=== PATIENT | female | born 1970 | race Caucasian/White ===

== ENCOUNTER → 2018-09-08 | Outpatient (REF) | payer BC ==
[2018-09-08 12:27] LABS: HEMATOCRIT 46.7 % (36.0-47.0); HEMOGLOBIN 14.8 g/dl (12.0-15.5); MEAN CORPUSCULAR HEMOGLOBIN 27.7 pg (27.0-33.0); MEAN CORPUSCULAR HGB CONC 31.7 g/dl (32.0-36.5); MEAN CORPUSCULAR VOLUME 87.5 fl (80.0-96.0); PLATELET COUNT, AUTOMATED 234 10^3/uL (150-450); RED BLOOD COUNT 5.34 10^6/uL (4.00-5.40); RED CELL DISTRIBUTION WIDTH 13.6 % (11.5-14.5); WHITE BLOOD COUNT 9.4 10^3/uL (4.0-10.0)
[2018-09-08 13:01] LABS: ALBUMIN 4.2 GM/DL (3.2-5.2); ALBUMIN/GLOBULIN RATIO 1.17 (1.00-1.93); ALKALINE PHOSPHATASE 135 U/L (45-117); ALT/SGPT 23 U/L (12-78); ANION GAP 6 MEQ/L (8-16); AST/SGOT 18 U/L (7-37); BILIRUBIN,TOTAL 0.4 MG/DL (0.2-1.0); BLOOD UREA NITROGEN 14 MG/DL (7-18); CARBON DIOXIDE LEVEL 29 MEQ/L (21-32); CHLORIDE LEVEL 106 MEQ/L (98-107); CHOLESTEROL LEVEL 294 MG/DL (<200); GLOMERULAR FILTRATION RATE > 60.0 (>58); GLUCOSE, FASTING 87 MG/DL (70-100); HDL CHOLESTEROL 28 MG/DL (>40); NON-HDL-C 266 MG/DL; POTASSIUM SERUM 5.6 MEQ/L (3.5-5.1); SODIUM LEVEL 141 MEQ/L (136-145); TOTAL PROTEIN 7.8 GM/DL (6.4-8.2); TRIGLYCERIDES LEVEL 422 MG/DL (<150)
[2018-09-08 13:10] LABS: TOTAL 25(OH) VITAMIN D 27.4 NG/ML (30.0-100.0)
[2018-09-08 13:33] LABS: ESTIMATED AVERAGE GLUCOSE 103 MG/DL (60-110); HEMOGLOBIN A1c 5.2 %
== END ==
LOC: M SFHCADAM 08:52
DX: E78.1 Pure hyperglyceridemia (principal); F17.200 Nicotine dependence, unspecified, uncomplicated; Z13.1 Encounter for screening for diabetes mellitus; E55.9 Vitamin D deficiency, unspecified

== ENCOUNTER → 2019-09-13 | Outpatient (REF) | payer BC ==
[2019-09-13 13:42] LABS: HEMATOCRIT 45.7 % (36.0-47.0); HEMOGLOBIN 14.6 g/dl (12.0-15.5); MEAN CORPUSCULAR HEMOGLOBIN 28.2 pg (27.0-33.0); MEAN CORPUSCULAR HGB CONC 31.9 g/dl (32.0-36.5); MEAN CORPUSCULAR VOLUME 88.2 fl (80.0-96.0); PLATELET COUNT, AUTOMATED 205 10^3/uL (150-450); RED BLOOD COUNT 5.18 10^6/uL (4.00-5.40)
[2019-09-13 13:44] LABS: ALT/SGPT 26 U/L (12-78); BILIRUBIN,TOTAL 0.5 MG/DL (0.2-1.0); BLOOD UREA NITROGEN 12 MG/DL (7-18); CALCIUM LEVEL 9.4 MG/DL (8.5-10.1); CARBON DIOXIDE LEVEL 28 MEQ/L (21-32); CHLORIDE LEVEL 105 MEQ/L (98-107); CHOLESTEROL LEVEL 258 MG/DL (<200); CHOLESTEROL RISK RATIO 8.062 (<5); CREATININE FOR GFR 0.76 MG/DL (0.55-1.30); FREE T4 1.06 NG/DL (0.76-1.46); GLOMERULAR FILTRATION RATE > 60.0 (>58); GLUCOSE, FASTING 74 MG/DL (70-100); HDL CHOLESTEROL 32 MG/DL (>40); LDL CHOLESTEROL 153 MG/DL (<100); NON-HDL-C 226 MG/DL; POTASSIUM SERUM 4.3 MEQ/L (3.5-5.1); SODIUM LEVEL 138 MEQ/L (136-145); TOTAL PROTEIN 7.9 GM/DL (6.4-8.2); TRIGLYCERIDES LEVEL 367 MG/DL (<150)
== END ==
LOC: M SFHCADAM 09:41
PROVIDERS: ATTEND Physician Assistant
DX: R06.09 Other forms of dyspnea (principal); E78.1 Pure hyperglyceridemia; E78.5 Hyperlipidemia, unspecified; F17.200 Nicotine dependence, unspecified, uncomplicated

== ENCOUNTER → 2021-08-09 | Outpatient (REF) | payer BC ==
[2021-08-09 18:16] LABS: HEMATOCRIT 45.7 % (36.0-47.0); HEMOGLOBIN 14.4 g/dl (12.0-15.5); MEAN CORPUSCULAR HEMOGLOBIN 27.6 pg (27.0-33.0); MEAN CORPUSCULAR HGB CONC 31.5 g/dl (32.0-36.5); MEAN CORPUSCULAR VOLUME 87.5 fl (80.0-96.0); PLATELET COUNT, AUTOMATED 234 10^3/uL (150-450); RED BLOOD COUNT 5.22 10^6/uL (4.00-5.40); WHITE BLOOD COUNT 9.6 10^3/uL (4.0-10.0)
[2021-08-09 18:47] LABS: ALBUMIN 4.1 GM/DL (3.2-5.2); ALT/SGPT 31 U/L (12-78); BILIRUBIN,TOTAL 0.3 MG/DL (0.2-1.0); BLOOD UREA NITROGEN 14 MG/DL (7-18); CALCIUM LEVEL 9.6 MG/DL (8.5-10.1); CARBON DIOXIDE LEVEL 30 MEQ/L (21-32); CHLORIDE LEVEL 104 MEQ/L (98-107); CHOLESTEROL LEVEL 226 MG/DL (<200); CHOLESTEROL RISK RATIO 7.062 (<5); CREATININE FOR GFR 0.77 MG/DL (0.55-1.30); FREE T4 1.02 NG/DL (0.76-1.46); GLOMERULAR FILTRATION RATE > 60.0 (>51); GLUCOSE, FASTING 85 MG/DL (70-100); HDL CHOLESTEROL 32 MG/DL (>40); LDL CHOLESTEROL 125 MG/DL (<100); NON-HDL-C 194 MG/DL; SODIUM LEVEL 138 MEQ/L (136-145); TRIGLYCERIDES LEVEL 347 MG/DL (<150)
[2021-08-09 21:22] LABS: HEMOGLOBIN A1c 5.1 %
== END ==
LOC: M SFHCADAM 12:12
PROVIDERS: ATTEND Physician Assistant
DX: E78.2 Mixed hyperlipidemia (principal); F17.210 Nicotine dependence, cigarettes, uncomplicated; E78.1 Pure hyperglyceridemia; Z13.1 Encounter for screening for diabetes mellitus; E55.9 Vitamin D deficiency, unspecified

== ENCOUNTER 2021-10-07 12:41 | Emergency (ER) | payer BC ==
[~2021-10-07] VITALS: Ht 160 cm; Wt 91.8 kg
--- OUTSIDE RECORDS SUMMARY | 2021-10-07 12:47 | CCD ---
Author Author [facility] Organization [facility] Address Unknown Phone Unavailable Care Team Providers Care Information Services Consultant Name Role Phone Raven Sinclair Unavailable PROBLEMS Type Condition ICD9-CM Code FLH06-DH Code Onset Dates Condition S tatus W/U Status Risk SNOMED Code Notes Problem Gastro-esophageal reflux disease without esophagitis K21.9 Active confirmed 270711079 Problem Hypertriglyceridemia E78.1 Active confirmed 034274648 Problem Hordeolum externum right lower eyelid H00.012 Ac tive confirmed 3274027 Problem Allergic rhinitis, unspecified J30.9 Active confir med 00604904 Problem Nicotine dependence, unspecified, uncomplicated F1 7.200 Active confirmed 227606935 Problem Hyperlipidemia, unspecified E78.5 Active confirmed 09212394 Problem Vitamin D deficiency, unspecified E55.9 Active con firmed 39282882 Problem Mixed hyperlipidemia E78.2 Active confirmed 372463739 Problem Major depressive disorder, single episode, unspecified F32.9 Active confirmed 50196333 Problem Cigarette nicotine dependence without complication F17.210 Active confirmed 62137460 Problem Anxiety disorder, unspecified F41.9 Active confirm ed 117801568 Problem TAWNYA (obstructive sleep apnea) G47.33 Active confirm ed 20584338 Problem Other fatigue R53.83 Active confirmed 812732 01 Problem Low back pain M54.5 Active confirmed 698235 007 Problem Calculus of gallbladder without cholecystitis wi thout obstruction K80.20 Active confirmed 85127286 ALLERGIES No Known Allergies ENCOUNTERS from 1971 to 2021-08-22 Encounter Location Date Provider Diagnosis [facility] [address] [place] [address] 27 Jul, 2021 Raven Sinclair Hypertriglyceridemia E78.1 IMMUNIZATIONS Vaccine Route Administration Date Status COVID-19 dose #1 given elsewhere Unspecified Unknown Sep t 2020 Administered SOCIAL HISTORY Tobacco Use: Social History Observation Description Date Details (start date - stop date) Current Smoker Sex Assigned At : Social History Observation Description Sex Assigned At Unknown Audit Question Answer Notes Total Score: 5 Interpretation: Alcohol Education Sexual Hx: Question Answer Notes Had sex in the last 12 months (vaginal, oral, or anal)? No LMP: age 33 Have you ever had an STD? No Drug and Alcohol Question Answer Notes Total Score: 0 Interpretation: No problems reported Alcohol Screening: Question Answer Notes Did you have a drink containing alcohol in the past year? Ye s Points 2 Interpretation Negative How often did you have six or more drinks on one occas ion in the past year? Never (0 points) How many drinks did you have on a typica l day when you were drinking in the past year? 3 or 4 (1 point) How often did you have a drink containing alcohol in t he past year? Monthly or less (1 point) BMI Care Goal Follow-Up Question Answer Notes Above Normal BMI Follow-Up Lifestyle education regarding t Tobacco Use: Question Answer Notes Are you a: current smoker Patient counseled on the dangers of tobacco use and urged to quit: 08/09/2021 How many cigarettes a day do you smoke? 11-20 Are you interested in quitting? Not ready to quit Counseled the patient on smoking effects, education provided 08/09/2021 REASON FOR REFERRAL No Information VITAL SIGNS No information MEDICATIONS Medication SIG (Take, Route, Frequency, Duration) Notes Start Da te End Date Status Loratadine 10 MG 1 tablet Orally Once a day Active Tylenol 500 MG 1 tablet as needed Orally every 6-8 hrs Active Prilosec 20mg 20mg 1 tab(s) orally daily for 30 Days Active Vitamin D3 5000 UNIT take one tablet by mouth andrew ry day Orally Once a day for 30 day(s) Active Tobrex 0.3 % 1 application Ophthalmic four times daily for 10 day(s) Aug, Not-Taking Ventolin HFA 108 (90 Base) MCG/ACT 2 puffs as needed I nhalation every 6 hrs as neededf ro shortnessof breath for 30 days Aug, Not-Taking Lipitor 80 MG 1 tablet Orally Once a day for 90 days 2019 Active Albuterol Sulfate HFA 108 (90 Base) MCG/ACT 1 puff as needed Inhalation every 4 hrs as needed for 30 days Jul, Active Omeprazole 20 MG 1 capsule 30 minutes before morning meal Orally Once a day for 90 days Jul, Active Pepcid 40 MG 1 tablet at bedtime Orally Once a day Active Fluoxetine HCl 20 MG 1 capsule Orally Once a day for 90 days Aug, Active PROCEDURES No Information RESULTS No Results REASON FOR VISIT lipids MEDICAL (GENERAL) HISTORY Type Description Date Medical History Migraine- Dr Brady - 2007/de pakote- gain wt, topamax-self stopped d/t lead taste Medical History Left lung nodule- CT chest 2 008 (Stable x 2 years - no further imaging required) Medical History Depression /anxiety- prozac/xanax Medical History Back pain- 2005 Medical History Left hip- osteoporosis Medical History Neck LN- left- ENT - Medical History Tobacco abuse- 1 PPD Medical History Vitamin D deficiency Medical History Mild lumbar DJD per x-ray 2012 Medical History TAWNYA - Did not tolerate CPAP mask Medical History Gall Stones - REferred to Surgery 04/2019 Medical History Hyperlipidemia/Hypertriglyceridemia Surgical History EGD - esophageal inflammation/colonoscop y normal - Dr. Gilbert 01/2015 Goals Section No Information Health Concerns No Information MEDICAL EQUIPMENT No Information MENTAL STATUS No Information FUNCTIONAL STATUS No Information ASSESSMENTS Encounter Date Diagnosis Assessment Notes Treatment Notes Treatm ent Clinical Notes Jul, Hypertriglyceridemia (ICD-10 - E78.1) PLAN OF TREATMENT Medication Medication Name Sig Start Date Stop Date Albuterol Sulfate HFA 108 (90 Base) MCG/ACT 1 puff as needed Inhalation every 4 hrs as needed for 30 days Jul, Omeprazole 20 MG 1 capsule 30 minutes before morning meal Orally Once a day for 90 days Jul, Lipitor 80 MG 1 tablet Orally Once a day for 90 days 30 Jan, 2 020 Fluoxetine HCl 20 MG 1 capsule Orally Once a day for 90 days Aug, Future Test Test Name Order Date Comprehensive Metabolic Profile (CMP) [id number] LIPID PANEL (CARDIAC RISK) [id number] Next Appt Details Provider Name:Raven Sinclair, 2020-10 -27 09:00:00 AM, [address], , [place], [address], Insurance Providers Payer Name Payer Address Payer Phone Insured Name Patient Relati onship to Insured Coverage Start Date Coverage End Date BCBS KIMBERLY RETANA [phone] [facility] [place] [address] JAIR STEWART [id number]
--- OUTSIDE RECORDS SUMMARY | 2021-10-07 12:47 | CCD ---
Author Author [facility] Organization [facility] Address Unknown Phone Unavailable Support Name Relationship Address Phone UN Next Of Kin Unknown Unavailable CONTACT, OTHER NO Next Of Kin - - -, - - - [place] [address] CHRISTOPHER FARAH Next Of Kin [address] [place] [address] PatChristopher bradley E[address] [place] [address] Unavailable Re-disclosure Warning The records that you are about to access may contain information from federally-assisted alcohol or drug abuse programs. If such information is present, then the following federally mandated warning applies: This information has been disclosed to you from records protected by federal confidentiality rules (42 CFR part 2). The federal rules prohibit you from making any further disclosure of this information unless further disclosure is expressly permitted by the written consent of the person to whom it pertains or as otherwise permitted by 42 CFR part 2. A general authorization for the release of medical or other information is NOT sufficient for this purpose. The Federal rules restrict any use of the information to criminally investigate or prosecute any alcohol or drug abuse patient.The records that you are about to access may contain highly sensitive health information, the redisclosure of which is protected by Article 27-F of the [facility] Public Health law. If you continue you may have access to information: Regarding HIV / AIDS; Provided by facilities licensed or operated by the [facility] Office of Mental Health; or Provided by the [facility] Office for People With Developmental Disabilities. If such information is present, then the following [facility] mandated warning applies: This information has been disclosed to you from confidential records which are protected by state law. State law prohibits you from making any further disclosure of this information without the specific written consent of the person to whom it pertains, or as otherwise permitted by law. Any unauthorized further disclosure in violation of state law may result in a fine or mcc sentence or both. A general authorization for the release of medical or other information is NOT sufficient authorization for further disc losure. Family History Family Member Name Family Member Gender Family Member Status Date o f Status Description Data Source(s) Unknown Female Problem MEDENT ([facility]) Unknown Female Problem MEDENT ([facility]) Encounters Encounter Providers Location Date Indications Data Source(s ) [place] [address] [address] 08/12/2021 12:00:00 AM EDT [facility]CW1 [facility] [place] [address] [facility] [place] [address] 08/09/2021 12:00:00 AM EDT eCW1 ([facility]) Unknown [address] [facility] [place] [address] 07/03/2021 12:00:00 AM EDT eCW1 ([facility]) [place] [address] [address] 05/31/2021 12:00:00 AM EDT eCW1 ([facility]) [place] [address] [facility] [facility] [place] [address] 05/31/2021 12:00:00 AM EDT eCW1 ([facility]) [place] [address] [facility] [place] [address] 05/31/2021 12:00:00 AM EDT eCW1 ([facility]) [place] [address] [address] 11/15/2020 12:00:00 AM EST eCW1 ([facility]) [place] [address] [facility] [place] [address] 10/03/2020 12:00:00 AM EST eCW1 ([facility]) Immunizations Vaccine Date Status Description Data Source(s) COVID-19 dose #1 given elsewhere Unspecified 08/05/2021 11:3 4:00 AM EDT [facility] COVID-19 dose #1 given elsewhere Unspecified 08/05/2021 11:3 4:00 AM EDT completed eCW1 ([facility]) COVID-19 VACCINE Mayda 08/05/2021 12:00:00 AM EDT completed [facility] Vaccine Series Complete: YESThis Data wa s Submitted to [facility] Via [employer]. Medications Medication Brand Name Start Date Product Form Dose Route Admi nistrative Instructions Pharmacy Instructions Status Indications Reaction Description Data Source(s) 80 mg 08/19/2021 12:00:00 AM EDT tablet 90 TAKE ONE TABLET BY MOUTH EVERY DAY TAKE ONE TABLET BY MOUTH EVERY DAY SOLD: 09/06/2021 [facility] 20 mg 08/09/2021 12:00:00 AM EDT capsule,delayed release (DR/EC) 90 TAKE ONE CAPSULE BY MOUTH 30 MINUTES PRIOR TO MORNING MEAL ONCE DAILY TAKE ONE CAPSULE BY MOUTH 30 MINUTES PRIOR TO MORNING MEAL ONCE DAILY SOLD: 08/09/2021 [facility] Omeprazole 20 MG Delayed Release Oral Capsule Omeprazole 20 MG 08/09/2021 12:00:00 AM EDT active Omeprazo le 20 MG eCW1 ([facility]) 20 mg 08/09/2021 12:00:00 AM EDT capsule 90 TAKE ONE CAPSULE BY MOUTH ONCE DAILY TAKE ONE CAPSULE BY MOUTH ONCE DAILY SOLD: 08/09/2021 [facility] 90 mcg/actuation 08/09/2021 12:00:00 AM EDT HFA aerosol inha ler 8 INHALE 1 PUFF BY MOUTH EVERY 4 HOURS NEEDED INHALE 1 PUFF BY MOUTH EVERY 4 HOURS NEEDED SOLD: 08/09/2021 [facility] Albuterol Sulfate HFA 108 (90 Base) MCG/ACT Albuterol Sulfate HFA 108 (90 Base) MCG/ACT 08/09/2021 12:00:00 AM EDT 1.0 {puff_as_needed} active Albuterol Sulfate HFA 108 (90 Base) MCG/ACT eCW1 ([facility]) Albuterol Sulfate HFA 108 (90 Base) MCG/ACT Albuterol Sulfate HFA 108 (90 Base) MCG/ACT 08/09/2021 12:00:00 AM EDT 1.0 {puff_as_needed} active Albuterol Sulfate HFA 108 (90 Base) MCG/ACT eCW1 ([facility]) atorvastatin 40 MG Oral Tablet ATORVASTATIN CALCIUM 08/09/2021 1 2:00:00 AM EDT tablet 90 TAKE ONE TABLET BY MOUTH ONCE DA PACO TAKE ONE TABLET BY MOUTH ONCE DAILY SOLD: 08/09/2021 [facility] Omeprazole 20 MG Delayed Release Oral Capsule Omeprazole 20 MG 08/09/2021 12:00:00 AM EDT active Omeprazo le 20 MG eCW1 ([facility]) 20 mg 07/04/2021 12:00:00 AM EDT capsule 30 TAKE ONE CAPSULE BY MOUTH EVERY DAY TAKE ONE CAPSULE BY MOUTH EVERY DAY SOLD: 07/15/2021 [facility] atorvastatin 40 MG Oral Tablet ATORVASTATIN CALCIUM 06/01/2021 1 2:00:00 AM EDT tablet 30 TAKE ONE TABLET BY MOUTH EVERY D AY TAKE ONE TABLET BY MOUTH EVERY DAY SOLD: 07/15/2021 [facility] 20 mg 06/01/2021 12:00:00 AM EDT capsule 30 TAKE ONE CAPSULE BY MOUTH ONCE DAILY TAKE ONE CAPSULE BY MOUTH ONCE DAILY SOLD: 06/02/2021 [facility] atorvastatin 40 MG Oral Tablet ATORVASTATIN CALCIUM 06/01/2021 1 2:00:00 AM EDT tablet 30 TAKE ONE TABLET BY MOUTH EVERY D AY TAKE ONE TABLET BY MOUTH EVERY DAY SOLD: 06/02/2021 [facility] 20 mg 05/31/2021 12:00:00 AM EDT capsule,delayed release (DR/EC) 30 TAKE ONE CAPSULE BY MOUTH EVERY DAY TAKE ONE CAPSULE BY MOUTH EVERY DAY SOLD: 07/15/2021 [facility] 20 mg 05/31/2021 12:00:00 AM EDT capsule,delayed release (DR/EC) 30 TAKE ONE CAPSULE BY MOUTH EVERY DAY TAKE ONE CAPSULE BY MOUTH EVERY DAY SOLD: 06/02/2021 [facility] 20 mg 11/16/2020 12:00:00 AM EST capsule 30 TAKE ONE CAPSULE BY MOUTH EVERY DAY TAKE ONE CAPSULE BY MOUTH EVERY DAY SOLD: 02/27/2021 [facility] atorvastatin 40 MG Oral Tablet ATORVASTATIN CALCIUM 11/16/2020 1 2:00:00 AM EST tablet 30 TAKE ONE TABLET BY MOUTH EVERY D AY TAKE ONE TABLET BY MOUTH EVERY DAY SOLD: 03/27/2021 [facility] atorvastatin 40 MG Oral Tablet ATORVASTATIN CALCIUM 11/16/2020 1 2:00:00 AM EST tablet 30 TAKE ONE TABLET BY MOUTH EVERY D AY TAKE ONE TABLET BY MOUTH EVERY DAY SOLD: 02/27/2021 [facility] 20 mg 11/16/2020 12:00:00 AM EST capsule 30 TAKE ONE CAPSULE BY MOUTH EVERY DAY TAKE ONE CAPSULE BY MOUTH EVERY DAY SOLD: 11/18/2020 [facility] 20 mg 11/16/2020 12:00:00 AM EST capsule 30 TAKE ONE CAPSULE BY MOUTH EVERY DAY TAKE ONE CAPSULE BY MOUTH EVERY DAY SOLD: 03/27/2021 [facility] 20 mg 11/16/2020 12:00:00 AM EST capsule 30 TAKE ONE CAPSULE BY MOUTH EVERY DAY TAKE ONE CAPSULE BY MOUTH EVERY DAY SOLD: 12/24/2020 [facility] 20 mg 11/16/2020 12:00:00 AM EST capsule 30 TAKE ONE CAPSULE BY MOUTH EVERY DAY TAKE ONE CAPSULE BY MOUTH EVERY DAY SOLD: 05/07/2021 [facility] atorvastatin 40 MG Oral Tablet ATORVASTATIN CALCIUM 11/16/2020 1 2:00:00 AM EST tablet 30 TAKE ONE TABLET BY MOUTH EVERY D AY TAKE ONE TABLET BY MOUTH EVERY DAY SOLD: 12/24/2020 [facility] 20 mg 11/16/2020 12:00:00 AM EST capsule 30 TAKE ONE CAPSULE BY MOUTH EVERY DAY TAKE ONE CAPSULE BY MOUTH EVERY DAY SOLD: 01/21/2021 [facility] atorvastatin 40 MG Oral Tablet ATORVASTATIN CALCIUM 11/16/2020 1 2:00:00 AM EST tablet 30 TAKE ONE TABLET BY MOUTH EVERY D AY TAKE ONE TABLET BY MOUTH EVERY DAY SOLD: 01/21/2021 [facility] atorvastatin 40 MG Oral Tablet ATORVASTATIN CALCIUM 11/16/2020 1 2:00:00 AM EST tablet 30 TAKE ONE TABLET BY MOUTH EVERY D AY TAKE ONE TABLET BY MOUTH EVERY DAY SOLD: 05/07/2021 [facility] atorvastatin 40 MG Oral Tablet ATORVASTATIN CALCIUM 11/16/2020 1 2:00:00 AM EST tablet 30 TAKE ONE TABLET BY MOUTH EVERY D AY TAKE ONE TABLET BY MOUTH EVERY DAY SOLD: 11/18/2020 [facility] 20 mg 11/15/2020 12:00:00 AM EST capsule,delayed release (DR/EC) 30 TAKE ONE CAPSULE BY MOUTH EVERY DAY TAKE ONE CAPSULE BY MOUTH EVERY DAY SOLD: 03/27/2021 [facility] 20 mg 11/15/2020 12:00:00 AM EST capsule,delayed release (DR/EC) 30 TAKE ONE CAPSULE BY MOUTH EVERY DAY TAKE ONE CAPSULE BY MOUTH EVERY DAY SOLD: 02/27/2021 [facility] 20 mg 11/15/2020 12:00:00 AM EST capsule,delayed release (DR/EC) 30 TAKE ONE CAPSULE BY MOUTH EVERY DAY TAKE ONE CAPSULE BY MOUTH EVERY DAY SOLD: 12/24/2020 [facility] 20 mg 11/15/2020 12:00:00 AM EST capsule,delayed release (DR/EC) 30 TAKE ONE CAPSULE BY MOUTH EVERY DAY TAKE ONE CAPSULE BY MOUTH EVERY DAY SOLD: 01/21/2021 [facility] 20 mg 11/15/2020 12:00:00 AM EST capsule,delayed release (DR/EC) 30 TAKE ONE CAPSULE BY MOUTH EVERY DAY TAKE ONE CAPSULE BY MOUTH EVERY DAY SOLD: 05/07/2021 [facility] 20 mg 11/15/2020 12:00:00 AM EST capsule,delayed release (DR/EC) 30 TAKE ONE CAPSULE BY MOUTH EVERY DAY TAKE ONE CAPSULE BY MOUTH EVERY DAY SOLD: 11/18/2020 [facility] 20 mg 10/04/2020 12:00:00 AM EST capsule 30 TAKE ONE CAPSULE BY MOUTH EVERY DAY TAKE ONE CAPSULE BY MOUTH EVERY DAY SOLD: 10/15/2020 [facility] atorvastatin 40 MG Oral Tablet ATORVASTATIN CALCIUM 10/04/2020 1 2:00:00 AM EST tablet 30 TAKE ONE TABLET BY MOUTH EVERY D AY TAKE ONE TABLET BY MOUTH EVERY DAY SOLD: 10/15/2020 [facility] 20 mg 10/03/2020 12:00:00 AM EST capsule,delayed release (DR/EC) 30 TAKE ONE CAPSULE BY MOUTH EVERY DAY TAKE ONE CAPSULE BY MOUTH EVERY DAY SOLD: 10/15/2020 [facility] 20 mg 03/02/2020 12:00:00 AM EDT capsule 30 TAKE ONE CAPSULE BY MOUTH EVERY DAY TAKE ONE CAPSULE BY MOUTH EVERY DAY SOLD: 08/08/2020 [facility] 20 mg 03/02/2020 12:00:00 AM EDT capsule 30 TAKE ONE CAPSULE BY MOUTH EVERY DAY TAKE ONE CAPSULE BY MOUTH EVERY DAY SOLD: 09/17/2020 [facility] 20 mg 03/01/2020 12:00:00 AM EDT capsule,delayed release (DR/EC) 30 TAKE ONE CAPSULE BY MOUTH EVERY DAY TAKE ONE CAPSULE BY MOUTH EVERY DAY SOLD: 08/08/2020 [facility] 125 mcg (5,000 unit) 03/01/2020 12:00:00 AM EDT tablet 30 TAKE ONE TABLET BY MOUTH EVERY DAY TAKE ONE TABLET BY MOUTH EVERY DAY SOLD: 08/08/2020 [facility] 20 mg 03/01/2020 12:00:00 AM EDT capsule,delayed release (DR/EC) 30 TAKE ONE CAPSULE BY MOUTH EVERY DAY TAKE ONE CAPSULE BY MOUTH EVERY DAY SOLD: 09/17/2020 [facility] atorvastatin 40 MG Oral Tablet ATORVASTATIN CALCIUM 02/13/2020 1 2:00:00 AM EDT tablet 30 TAKE ONE TABLET BY MOUTH EVERY D AY TAKE ONE TABLET BY MOUTH EVERY DAY SOLD: 09/17/2020 [facility] atorvastatin 40 MG Oral Tablet ATORVASTATIN CALCIUM 02/13/2020 1 2:00:00 AM EDT tablet 30 TAKE ONE TABLET BY MOUTH EVERY D AY TAKE ONE TABLET BY MOUTH EVERY DAY SOLD: 08/08/2020 [facility] Insurance Providers Payer name Policy type / Coverage type Policy ID Covered libertarian ID Covered libertarian's relationship to garner Policy Garner Plan Information BCBS/[employer] Commercial [id number] Family Dependent ANSI-Commercial [id number] BLUE CROSS BLUE SHIELD-O/P [id number] ANSI-Commercial [id number] ANSI-Commercial [id number] [place] PPO 302/307 [id number] [place]CELL[place] BCBS P [id number] BPM [id number] BLUE CROSS BLUE SHIELD-O/P [id number] BCBS [place] PPO 302/307 [id number] Problems, Conditions, and Diagnoses Code Display Name Description Problem Type Effective Dates Data Source(s) F17.210 [id number] Cigarette nicotine dependence without com plication Problem 08/09/2021 12:00:00 AM EDT eCW1 ([facility]) Surgeries/Procedures No Information Results ID Date Data Source VITAMIN D [id number] 08/09/2021 12:00:00 AM EDT eCW1 ([facility]) Name Value Range Interpretation Code Description Data Josephine rce(s) Supporting Document(s) 40.0 30.0-100.0 TOTAL 25(OH) VITAMIN D eC W1 ([facility]) ID Date Data Source LIPID PANEL (CARDIAC RISK) 08/09/2021 12:00:00 AM EDT eCW1 ( [facility]) Name Value Range Interpretation Code Description Data Josephine rce(s) Supporting Document(s) Triglyceride [Mass/volume] in Serum or Plasma by calculation 347 <150 TRIGLYCERIDES LEVEL eCW1 ([facility]) Cholesterol in LDL [Mass/volume] in Serum or Plasma by calculation 125 <100 LDL CHOLESTEROL eCW1 ([facility]) Cholesterol in HDL [Moles/volume] in Serum or Plasma 32 >40 HDL CHOLESTEROL eCW1 ([facility]) Cholesterol [Moles/volume] in Serum or Plasma 226 <200 CHOLESTEROL LEVEL eCW1 ([facility]) 7.062 <5 CHOLESTEROL RISK RATIO eCW1 ([facility]) 194 NON-HDL-C eCW1 ([facility]) ID Date Data Source [id number] 08/09/2021 12:00:00 AM EDT eCW1 ([facility]) Name Value Range Interpretation Code Description Data Josephine rce(s) Supporting Document(s) Hemoglobin A1c/Hemoglobin.total in Blood 5.1 HEMOGLOBIN A1c eCW1 ([facility]) ID Date Data Source FREE T4 & TSH PANEL 08/09/2021 12:00:00 AM EDT eCW1 ([facility]) Name Value Range Interpretation Code Description Data Josephine rce(s) Supporting Document(s) 2.170 0.358-3.740 THYROID STIMULATING HORM ONE eCW1 ([facility]) 1.02 0.76-1.46 FREE T4 eCW1 ([facility]) ID Date Data Source Comprehensive Metabolic Profile (CMP) 08/09/2021 12:00:00 AM EDT eCW1 ([facility]) Name Value Range Interpretation Code Description Data Josephine rce(s) Supporting Document(s) 85 70-100 GLUCOSE, FASTING eCW1 ([facility]) 14 7-18 BLOOD UREA NITROGEN eCW1 ([facility]) 5.0 3.5-5.1 POTASSIUM SERUM eCW1 ([facility]) 0.77 0.55-1.30 CREATININE FOR GFR eCW1 ([facility]) > 60.0 >51 GLOMERULAR FILTRATION RATE eCW 1 ([facility]) 138 136-145 SODIUM LEVEL eCW1 ([facility]) 30 21-32 CARBON DIOXIDE LEVEL eCW1 ([facility]) 9.6 8.5-10.1 CALCIUM LEVEL eCW1 ([facility]) 104 98-107 CHLORIDE LEVEL eCW1 ([facility]) 19 7-37 AST/SGOT eCW1 ([facility]) 31 12-78 ALT/SGPT eCW1 ([facility]) 129 45-117 ALKALINE PHOSPHATASE eCW1 ([facility]) 0.3 0.2-1.0 BILIRUBIN,TOTAL eCW1 ([facility]) 8.0 6.4-8.2 TOTAL PROTEIN eCW1 ([facility]) 4.1 3.2-5.2 ALBUMIN eCW1 ([facility]) 1.1 1.2-2.2 ALBUMIN/GLOBULIN RATIO eCW1 ([facility]) ID Date Data Source CBC - Complete Blood Count 08/09/2021 12:00:00 AM EDT eCW1 ( [facility]) Name Value Range Interpretation Code Description Data Josephine rce(s) Supporting Document(s) 9.6 4.0-10.0 WHITE BLOOD COUNT eCW1 ([facility]) 5.22 4.00-5.40 RED BLOOD COUNT eCW1 ([facility]) 14.4 12.0-15.5 HEMOGLOBIN eCW1 ([facility]) 45.7 36.0-47.0 HEMATOCRIT eCW1 ([facility]) 87.5 80.0-96.0 MEAN CORPUSCULAR VOLUME e CW1 ([facility]) 31.5 32.0-36.5 MEAN CORPUSCULAR HGB CONC eCW1 ([facility]) 234 150-450 PLATELET COUNT, AUTOMATED eCW1 ([facility]) 13.7 11.5-14.5 RED CELL DISTRIBUTION WID TH eCW1 ([facility]) 27.6 27.0-33.0 MEAN CORPUSCULAR HEMOGLOB IN eCW1 ([facility]) Procedure Social History Code Duration Value Status Description Data Source(s ) Smoking 08/09/2021 12:00:00 AM EDT Current Smoker completed Curre nt Smoker eCW1 ([facility]) Smoking 08/09/2021 12:00:00 AM EDT Current Smoker completed Curre nt Smoker eCW1 ([facility]) Vital Signs ID Date Data Source UNK Name Value Range Interpretation Code Description Data Source(s) Body weight 196.8 [lb_av] 196.8 [lb_av] eCW1 ([facility]) Body weight 89.27 kg 89.27 kg W1 ([facility]) Body height 63 [in_i] 63 [in_i] W1 ([facility]) Systolic blood pressure 118 mm[Hg] 118 mm[Hg] e CW1 ([facility]) Respiratory rate 18 /min 18 /min W1 ([facility]) Body temperature 94.9 [degF] 94.9 [degF] eCW1 ( [facility]) Diastolic blood pressure 60 mm[Hg] 60 mm[Hg] eCW1 ([facility]) Body mass index (BMI) [Ratio] 34.86 kg/m2 34.86 kg/m2 eCW1 ([facility]) Heart rate 114 /min 114 /min eCW1 ([facility]) Patient Treatment Plan of Care Planned Activity Planned Date Details Description Data Source (s) Omeprazole 20 MG Delayed Release Oral Capsule 08/09/2021 12:00:00 A M EDT eCW1 ([facility]) Albuterol Sulfate HFA 108 (90 Base) MCG/ACT 08/09/2021 12:00:00 AM EDT eCW1 ([facility]) Omeprazole 20 MG Delayed Release Oral Capsule 08/09/2021 12:00:00 A M EDT eCW1 ([facility]) Albuterol Sulfate HFA 108 (90 Base) MCG/ACT 08/09/2021 12:00:00 AM EDT eCW1 ([facility])
--- OUTSIDE RECORDS SUMMARY | 2021-10-07 12:47 | CCD ---
Author Author [facility] Organization [facility] Address Unknown Phone Unavailable Care Team Providers Care Quality Assurance Supervisor Body Name Role Phone Raven Sinclair Unavailable PROBLEMS Type Condition ICD9-CM Code [id number] Code Onset Dates Condition S tatus W/U Status Risk SNOMED Code Notes Problem Gastro-esophageal reflux disease without esophagitis K21.9 Active confirmed 274177054 Problem Hypertriglyceridemia E78.1 Active confirmed 796328615 Problem Hordeolum externum right lower eyelid H00.012 Ac tive confirmed 5416904 Problem Allergic rhinitis, unspecified J30.9 Active confir med 68769263 Problem Nicotine dependence, unspecified, uncomplicated F1 7.200 Active confirmed 304047560 Problem Hyperlipidemia, unspecified E78.5 Active confirmed 68982111 Problem Vitamin D deficiency, unspecified E55.9 Active con firmed 96402691 Problem Mixed hyperlipidemia E78.2 Active confirmed 376720364 Problem Major depressive disorder, single episode, unspecified F32.9 Active confirmed 13737347 Problem Cigarette nicotine dependence without complication F17.210 Active confirmed 22607501 Problem Anxiety disorder, unspecified F41.9 Active confirm ed 618646403 Problem TAWNYA (obstructive sleep apnea) G47.33 Active confirm ed 50312444 Problem Other fatigue R53.83 Active confirmed 971500 01 Problem Low back pain M54.5 Active confirmed 285820 007 Problem Calculus of gallbladder without cholecystitis wi thout obstruction K80.20 Active confirmed 60384121 ALLERGIES No Known Allergies ENCOUNTERS from 1970 to 2021-08-14 Encounter Location Date Provider Diagnosis [facility] [address] [place] [address] Jul, Raven Sinclair Cigarette nicotine dependence without co mplication F17.210 ; Major depressive disorder, single episode, unspecified F32.9 ; Anxiety disorder, unspecified F41.9 ; Gastro-esophageal reflux disease without esophagitis K21.9 ; Vitamin D deficiency, unspecified E55.9 ; Hypertriglyceridemia E78.1 ; Chronic cough R05 and Diabetes mellitus screening Z13.1 IMMUNIZATIONS Vaccine Route Administration Date Status COVID-19 [...] REASON FOR REFERRAL No Information VITAL SIGNS Weight 196.8 lbs Jul, Weight-kg 89.27 kg Jul, Height 63 in Jul, BMI 34.86 kg/m2 Jul, Heart Rate 114 /min Jul, Respiratory Rate 18 /min Jul, Temperature 94.9 degrees Fahrenheit Jul, Oximetry 98 Jul, Blood pressure systolic 118 mm Hg Jul, Blood pressure diastolic 60 mm Hg Jul, MEDICATIONS Medication SIG (Take, Route, Frequency, Duration) [...] Once a day for 30 day(s) Active Ventolin HFA 108 (90 Base) MCG/ACT 2 puffs as needed I nhalation every 6 hrs as neededf ro shortnessof breath for 30 days Aug, Not-Taking Lipitor 40 MG 1 tablet Orally Once a day Jan, Active Fluoxetine HCl 20 MG 1 capsule Orally Once a day for 90 days Aug, Active Albuterol Sulfate HFA 108 (90 Base) MCG/ACT 1 puff as needed Inhalation every 4 hrs as needed for 30 days Jul, Active Omeprazole 20 MG 1 capsule 30 minutes before morning meal Orally Once a day for 90 days Jul, Active Pepcid 40 MG 1 tablet at bedtime Orally Once a day Active Tobrex 0.3 % 1 application Ophthalmic four times daily for 10 day(s) Aug, Not-Taking PROCEDURES No Information RESULTS Component Value Reference Range CBC - Complete Blood Count Reviewed date:08/11/2021 08:22:13 Interpretation: Performing Lab:[facility], [facility] [id number] , ,[place] [address] WHITE BLOOD COUNT 9.6 4.0-10.0 RED BLOOD COUNT 5.22 4.00-5.40 HEMOGLOBIN 14.4 12.0-15.5 HEMATOCRIT 45.7 36.0-47.0 MEAN CORPUSCULAR VOLUME 87.5 80.0-96.0 MEAN CORPUSCULAR HEMOGLOBIN 27.6 27.0-33.0 MEAN CORPUSCULAR HGB CONC 31.5 32.0-36.5 RED CELL DISTRIBUTION WIDTH 13.7 11.5-14.5 PLATELET COUNT, AUTOMATED 234 150-450 Comprehensive Metabolic Profile (CMP) Reviewed date:08/11/2021 08:22:05 Interpretation: Performing Lab:[facility] [address] [place] [address] , ,[place] [address] GLUCOSE, FASTING 85 70-100 BLOOD UREA NITROGEN 14 7-18 CREATININE FOR GFR 0.77 0.55-1.30 GLOMERULAR FILTRATION RATE > 60.0 >51 SODIUM LEVEL 138 136-145 POTASSIUM SERUM 5.0 3.5-5.1 CHLORIDE LEVEL 104 98-107 CARBON DIOXIDE LEVEL 30 21-32 CALCIUM LEVEL 9.6 8.5-10.1 AST/SGOT 19 7-37 ALT/SGPT 31 12-78 ALKALINE PHOSPHATASE 129 45-117 BILIRUBIN,TOTAL 0.3 0.2-1.0 TOTAL PROTEIN 8.0 6.4-8.2 ALBUMIN 4.1 3.2-5.2 ALBUMIN/GLOBULIN RATIO 1.1 1.2-2.2 FREE T4 & TSH PANEL Reviewed date:08/11/2021 08:22:45 Interpretation: Performing Lab:[facility] [address] [place] [address] , ,[place] [address] THYROID STIMULATING HORMONE 2.170 0.358-3.740 FREE T4 1.02 0.76-1.46 HEMOGLOBIN A1c Reviewed date:08/11/2021 08:21:51 Interpretation: Performing Lab:[facility] [address] [place] [address] , ,[place] [address] HEMOGLOBIN A1c 5.1 ESTIMATED AVERAGE GLUCOSE 100 60-110 LIPID PANEL (CARDIAC RISK) Reviewed date:08/11/2021 08:22:51 Interpretation: Performing Lab:[facility] [address] [place] [address] , ,[place] [address] TRIGLYCERIDES LEVEL 347 <150 CHOLESTEROL LEVEL 226 <200 HDL CHOLESTEROL 32 >40 LDL CHOLESTEROL 125 <100 NON-HDL-C 194 CHOLESTEROL RISK RATIO 7.062 <5 VITAMIN D 25-HYDROXY Reviewed date:08/11/2021 08:21:56 Interpretation: Performing Lab:[facility] [address] [address] , ,[place] [address] TOTAL 25(OH) VITAMIN D 40.0 30.0-100.0 REASON FOR VISIT 2 yr, refusal of flu vaccine MEDICAL (GENERAL) HISTORY Type Description Date Medical [...] Treatment Notes Treatm ent Clinical Notes Jul, Cigarette nicotine dependenc e without complication (ICD-10 - F17.210) I personally spent greater than 3 minutes counseling patient concerning the importance of smoking cessation. We discussed how quitting would be personally relevant. I asked the patient to identify potential negative consequences of tobacco use - I pointed out the multiple risks asoociated with ongoing tobacco use. We attempted to identify potential barriers to quitting and discussed strategies to address this. We arranged follow up to continue to support patient in their effort to quit. She declines help with smoking cessation at this time- not ready to quite at this time Jul, Major depressive disorder, s john episode, unspecified (ICD-10 - F32.9) Jul, Anxiety disorder, unspecified (ICD-10 - F41.9) Jul, Gastro-esophageal reflux dis ease without esophagitis (ICD-10 - K21.9) Jul, Vitamin D deficiency, unspecified (ICD-10 - E55. 9) Jul, Hypertriglyceridemia (ICD-10 - E78.1) Jul, Chronic cough (ICD-10 - R05) Get sOB with exertion - likely related to exercise induced Asthma with underlying smoking induced lung disease. Starts coughing and can't catch her breath. Uses Albuterol with relief - uses this about 2 -3 times a week. Jul, Diabetes mellitus screening (ICD-10 - Z13.1) PLAN OF TREATMENT Medication Medication Name Sig Start Date Stop Date Albuterol Sulfate HFA 108 (90 Base) MCG/ACT 1 puff as needed Inhalation every 4 hrs as needed for 30 days Jul, Omeprazole 20 MG 1 capsule 30 minutes before morning meal Orally Once a day for 90 days Jul, Fluoxetine HCl 20 MG 1 capsule Orally Once a day for 90 days Aug, Lipitor 40 MG 1 tablet Orally Once a day Jan, Treatment Notes Assessment Notes Clinical Notes Cigarette nicotine dependence without complication I personally spent greater than 3 minutes counseling patient concerning the importance of smoking cessation. We discussed how quitting would be personally relevant. I asked the patient to identify potential negative consequences of tobacco use - I pointed out the multiple risks asoociated with ongoing tobacco use. We attempted to identify potential barriers to quitting and discussed strategies to address this. We arranged follow up to continue to support patient in their effort to quit.She declines help with smoking cessation at this time- not ready to quite at this time Chronic cough Get sOB with exertio n - likely related to exercise induced Asthma with underlying smoking induced lung disease. Starts coughing and can't catch her breath. Uses Albuterol with relief - uses this about 2 -3 times a week. Next Appt Details labs today, f/u for PAP and lab f/u in a few weeks Reason: Insurance Providers Payer Name Payer Address Payer Phone Insured Name Patient Relati onship to Insured Coverage Start Date Coverage End Date [facility] [phone] [id number] [facility] Yamsafer PA [facility] [id number] [address] [id number]
[2021-10-07] MEDS ORDERED: CLAR10CA3 PO (13:26)
[2021-10-07] MEDS ORDERED: OMEP-218 (13:26)
[2021-10-07] MEDS ORDERED: ALBU8.5H (13:26)
[2021-10-07] MEDS ORDERED: FLUO20CA22 (13:26)
[2021-10-07] MEDS ORDERED: ATOR80TA59 (13:26)
[2021-10-07 14:16] LABS: BASO # 0.1 10^3/uL (0.0-0.2); BASO % 0.7 % (0.0-1.0); EOS # 0.1 10^3/uL (0.0-0.5); EOS % 1.5 % (0.0-3.0); HEMATOCRIT 41.4 % (36.0-47.0); HEMOGLOBIN 13.4 g/dl (12.0-15.5); LYMPH # 2.7 10^3/uL (1.5-5.0); MEAN CORPUSCULAR HEMOGLOBIN 27.6 pg (27.0-33.0); MEAN CORPUSCULAR HGB CONC 32.4 g/dl (32.0-36.5); MEAN CORPUSCULAR VOLUME 85.4 fl (80.0-96.0); MONO # 0.5 10^3/uL (0.0-0.8); MONO % 6.3 % (2.0-8.0); NEUTROPHILS # 4.7 10^3/uL (1.5-8.5); NEUTROPHILS % 58.1 % (36.0-66.0); PLATELET COUNT, AUTOMATED 206 10^3/uL (150-450); RED BLOOD COUNT 4.85 10^6/uL (4.00-5.40); WHITE BLOOD COUNT 8.1 10^3/uL (4.0-10.0)
[2021-10-07 14:44] LABS: BLOOD UREA NITROGEN 13 MG/DL (7-18); CALCIUM LEVEL 9.3 MG/DL (8.5-10.1); CARBON DIOXIDE LEVEL 28 MEQ/L (21-32); CHLORIDE LEVEL 108 MEQ/L (98-107); CREATININE FOR GFR 0.72 MG/DL (0.55-1.30); GLOMERULAR FILTRATION RATE > 60.0 (>51); GLUCOSE, FASTING 114 MG/DL (70-100); POTASSIUM SERUM 4.3 MEQ/L (3.5-5.1); SODIUM LEVEL 141 MEQ/L (136-145)
[2021-10-07 14:50] LABS: CK-MB VALUE MASS < 1.0 NG/ML (<3.6); CPK CREATINE PHOSPHOKINASE 84 U/L (26-192); MB/CK RELATIVE INDEX 1.19 (< OR =4); TROPONIN I < 0.02 NG/ML (< 0.10)
[2021-10-07] MEDS ORDERED: NS 1,000 ML IV ONE (18:30)
[2021-10-07] MEDS ORDERED: ISOVUE-370 76% 100ML VIAL As Ordered ONE (18:32)
--- NOTE | 2021-10-07 19:42 | ECGEPIP ---
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
--- NOTE | 2021-10-07 19:48 | ECGEPIP ---
[facility] - ED Test Date: 2021-10-07 Pat Name: JAIR FARAH Department: Room: - Gender: Female [employer] Factory Worker: MIGUEL : 1970 Requested By: SUDHEER GALICIA PA-C. Order Number: [id number] Reading MD: Ana Logan Measurements Intervals [place] Rate: 73 P: 66 MT: 150 QRS: 26 QRSD: 78 T: 41 QT: 430 QTc: 473 Interpretive Statements Sinus rhythm with occasional premature ventricular complexes Nonspecific ST T wave changes Prolonged QTc cw 10/07/[address] T wave changes Electronically Signed on 10-07-2021 19:48:43 EST by Ana Logan
[2021-10-07 20:06] LABS: CK-MB VALUE MASS < 1.0 NG/ML (<3.6); CPK CREATINE PHOSPHOKINASE 69 U/L (26-192); MB/CK RELATIVE INDEX 1.45 (< OR =4); TROPONIN I < 0.02 NG/ML (< 0.10)
--- NOTE | 2021-10-07 20:26 | REPVR ---
PROCEDURE INFORMATION: Exam: CTA Chest With Contrast Exam date and time: 10/07/2021 6:27 PM Age: 51 years old Clinical indication: Pain; Chest pressure; Additional info: Chest pain R/O pe TECHNIQUE: Imaging protocol: Computed tomographic angiography of the chest with contrast. 3D rendering (Not supervised by radiologist): MIP and/or 3D reconstructed images were created by the technologist. Radiation optimization: All CT scans at this facility use at least one of these dose optimization techniques: automated exposure control; mA and/or kV adjustment per patient size (includes targeted exams where dose is matched to clinical indication); or iterative reconstruction. Contrast material: ISOVUE 370; Contrast volume: 75 ml; Contrast route: INTRAVENOUS (IV); COMPARISON: No relevant prior studies available. FINDINGS: Pulmonary arteries: No pulmonary emboli. Aorta: No aortic aneurysm. No aortic dissection. Lungs: There is a 4 mm noncalcified right upper lobe nodule (series 601, image 56). There is some basilar atelectasis. Pleural spaces: No pneumothorax. No pleural effusion. Heart: No cardiomegaly. No pericardial effusion. Lymph nodes: No enlarged lymph nodes. Bones/joints: There are degenerative changes of the spine. Soft tissues: Unremarkable. IMPRESSION: 1. There is no pulmonary embolism. 2. 4 mm noncalcified right upper lobe nodule. As per Fleischner Society guidelines for follow-up and management of pulmonary nodules: For patients at low risk (minimal or absent history of smoking and of other known risk factors), recommend follow-up chest CT at 12 months; if unchanged, no further follow-up. For patient at high risk (history of smoking or of other known risk factors), recommend initial follow-up chest CT at 6-12 months, then at 18-24 months if no interval change. Electronically signed by: Kris Pereira On 10/07/2021 20:26:05 PM
--- OUTSIDE RECORDS SUMMARY | 2021-10-07 20:27 | CCD ---
Author Author [facility] Organization [facility] Address Unknown Phone Unavailable Care Team Providers Care Doctor Of Naprapathy Name Role Phone Maring, Scar PA Unavailable Unavailable Maring, Scar PA Unavailable Unavailable Maring, Scar PA Unavailable Unavailable Maring, Scar PA Unavailable Unavailable Maring, Scar PA Unavailable Unavailable Maring, Scar PA Unavailable Unavailable Maring, Scar PA Unavailable Unavailable Maring, Scar PA Unavailable Unavailable Maring, Scar PA Unavailable Unavailable Maring, Scar PA Unavailable Unavailable Maring, Scar PA Unavailable Unavailable Maring, Scar PA Unavailable Unavailable Maring, Scar PA Unavailable Unavailable Maring, Scar PA Unavailable Unavailable Maring, Scar PA Unavailable Unavailable Maring, Scar PA Unavailable Unavailable Re-disclosure Warning The records that you [...] is protected by Article 27-F of the [facility] Public Health law. If you continue you may have access to information: Regarding HIV / AIDS; Provided by facilities licensed or operated by the [facility] Office of Mental Health; or Provided by the [facility] Office for People With Developmental Disabilities. If such information is present, then the following [facility] mandated warning applies: This information has been [...] law may result in a fine or mcfp sentence or both. A general authorization for [...] Providers Location Date Indications Data Source(s ) Outpatient Attender: Scar PIERCE 10/07/20 12:19:28 PM EST - 10/07/2021 12:35:46 PM EST DocuTap ([facility] ) Unknown [address] [facility] [facility] [place] [address] 08/12/2021 12:00:00 AM EDT eCW1 ([facility]) [place] [address] [address] [place] [address] 08/09/2021 12:00:00 AM EDT eCW1 ([facility]) [place] [address] [facility] [place] [address] 07/03/2021 12:00:00 AM EDT eCW1 ([facility]) [place] [address] [facility] [facility] [place] [address] 05/31/2021 12:00:00 AM EDT eCW1 ([facility]) Unknown [address] [facility] [facility] [address] [place] [address] 05/31/2021 12:00:00 AM EDT eCW1 ([facility]) Unknown [address] [facility] [place] [address] 05/31/2021 12:00:00 AM EDT eCW1 ([facility]) [place] [address] [facility] [place] [address] 11/15/2020 12:00:00 AM EST eCW1 ([facility]) [place] [address] [facility] [place] [address] 10/03/2020 12:00:00 AM EST eCW1 ([facility]) Immunizations Vaccine Date Status Description Data Source(s) COVID-19 dose #1 given elsewhere Unspecified 08/05/2021 11:3 4:00 AM EDT completed eCW1 ([facility]) COVID-19 dose #1 given elsewhere Unspecified 08/05/2021 11:3 4:00 AM EDT completed eCW1 ([facility]) COVID-19 VACCINE Mayda 08/05/2021 12:00:00 AM EDT completed [facility]IS Vaccine Series Complete: YESThis Data wa s Submitted to [facility]. Medications Medication Brand Name Start Date Product [...] EDT active Omeprazo le 20 MG eCW1 ([facility]) 20 mg 08/09/2021 12:00:00 AM EDT capsule [...] Sulfate HFA 108 (90 Base) MCG/ACT eCW1 ([facility]) Albuterol Sulfate HFA 108 (90 Base) MCG/ACT Albuterol Sulfate HFA 108 (90 Base) MCG/ACT 08/09/2021 12:00:00 AM EDT 1.0 {puff_as_needed} active Albuterol Sulfate HFA 108 (90 Base) MCG/ACT eCW1 ([facility]) atorvastatin 40 MG Oral Tablet ATORVASTATIN CALCIUM 08/09/2021 1 2:00:00 AM EDT tablet 90 TAKE ONE TABLET BY MOUTH ONCE DA PACO TAKE ONE TABLET BY MOUTH ONCE DAILY SOLD: 08/09/2021 [facility] Omeprazole 20 MG Delayed Release Oral Capsule Omeprazole 20 MG 08/09/2021 12:00:00 AM EDT active Omeprazo le 20 MG eCW1 ([facility]) 20 mg 07/04/2021 12:00:00 AM EDT capsule [...] TABLET BY MOUTH EVERY DAY SOLD: 03/27/2021 [facility] atorvastatin 40 MG Oral Tablet [...] TABLET BY MOUTH EVERY DAY SOLD: 01/21/2021 [facility] atorvastatin 40 MG Oral Tablet [...] type / Coverage type Policy ID Covered democrat ID Covered democrat's relationship to garner Policy Garner Plan Information BCBS/[employer] Commercial [id number] Family Dependent [employer] Blue Cross and Blue Shield [facility] Blue Cross/B e Shield [id number] Self [id number] BLUE CROSS BLUE SHIELD-O/P [id number] 18 [id number] ANSI-Commercial [id number] ANSI-Commercial [id number] [place] PPO 302/307 [id number] [id number] [place] BCBS P [id number] S BPM [id number] BLUE CROSS BLUE SHIELD-O/P [id number] 01 [id number] [place]BS [place] PPO 302/307 [id number] [id number] ANSI-Commercial [id number] Problems, Conditions, and Diagnoses Code Display Name Description Problem Type Effective Dates Data Source(s) F17.210 [id number] Cigarette nicotine dependence without com plication Problem 08/09/2021 12:00:00 AM EDT eCW1 ([facility]) Surgeries/Procedures No Information Results ID Date Data Source VITAMIN D 25-HYDROXY 08/09/2021 12:00:00 AM EDT eCW1 ([facility]) Name Value Range Interpretation Code Description Data Josephine rce(s) Supporting Document(s) 40.0 30.0-100.0 TOTAL 25(OH) VITAMIN D eC W1 ([facility]) ID Date Data Source LIPID PANEL (CARDIAC RISK) 08/09/2021 12:00:00 AM EDT eCW1 ( [facility]) Name Value Range Interpretation Code Description Data Josephine rce(s) Supporting Document(s) Triglyceride [Mass/volume] in Serum or Plasma by calculation 347 <150 TRIGLYCERIDES LEVEL eCW1 ([facility]) Cholesterol in LDL [Mass/volume] in Serum or Plasma by calculation 125 <100 LDL CHOLESTEROL eCW1 ([facility]) Cholesterol in HDL [Moles/volume] in Serum or Plasma 32 >40 HDL CHOLESTEROL eCW1 ([facility]) Cholesterol [Moles/volume] in Serum or Plasma 226 <200 CHOLESTEROL LEVEL eCW1 ([facility]) 7.062 <5 CHOLESTEROL RISK RATIO eCW1 ([facility]) 194 NON-HDL-C eCW1 ([facility]) ID Date Data Source [id number] 08/09/2021 12:00:00 AM EDT eCW1 ([facility]) Name Value Range Interpretation Code Description Data Josephine rce(s) Supporting Document(s) Hemoglobin A1c/Hemoglobin.total in Blood 5.1 HEMOGLOBIN A1c eCW1 ([facility]) ID Date Data Source FREE T4 & TSH PANEL 08/09/2021 12:00:00 AM EDT eCW1 ([facility]) Name Value Range Interpretation Code Description Data Josephine rce(s) Supporting Document(s) 2.170 0.358-3.740 THYROID STIMULATING HORM ONE eCW1 ([facility]) 1.02 0.76-1.46 FREE T4 eCW1 ([facility]) ID Date Data Source Comprehensive Metabolic Profile (CMP) 08/09/2021 12:00:00 AM EDT eCW1 ([facility]) Name Value Range Interpretation Code Description Data Josephine rce(s) Supporting Document(s) 85 70-100 GLUCOSE, FASTING eCW1 ([facility]) 14 7-18 BLOOD UREA NITROGEN eCW1 ([facility]) 5.0 3.5-5.1 POTASSIUM SERUM eCW1 ([facility]) 0.77 0.55-1.30 CREATININE FOR GFR eCW1 ([facility]) > 60.0 >51 GLOMERULAR FILTRATION RATE eCW 1 ([facility]) 138 136-145 SODIUM LEVEL eCW1 ([facility]) 30 21-32 CARBON DIOXIDE LEVEL eCW1 ([facility]) 9.6 8.5-10.1 CALCIUM LEVEL eCW1 ([facility]) 104 98-107 CHLORIDE LEVEL eCW1 ([facility]) 19 7-37 AST/SGOT eCW1 ([facility]) 31 12-78 ALT/SGPT eCW1 ([facility]) 129 45-117 ALKALINE PHOSPHATASE eCW1 ([facility]) 0.3 0.2-1.0 BILIRUBIN,TOTAL eCW1 ([facility]) 8.0 6.4-8.2 TOTAL PROTEIN eCW1 ([facility]) 4.1 3.2-5.2 ALBUMIN eCW1 ([facility]) 1.1 1.2-2.2 ALBUMIN/GLOBULIN RATIO eCW1 ([facility]) ID Date Data Source CBC - Complete Blood Count 08/09/2021 12:00:00 AM EDT eCW1 ( [facility]) Name Value Range Interpretation Code Description Data Josephine rce(s) Supporting Document(s) 9.6 4.0-10.0 WHITE BLOOD COUNT eCW1 ([facility]) 5.22 4.00-5.40 RED BLOOD COUNT eCW1 ([facility]) 14.4 12.0-15.5 HEMOGLOBIN eCW1 ([facility]) 45.7 36.0-47.0 HEMATOCRIT eCW1 ([facility]) 87.5 80.0-96.0 MEAN CORPUSCULAR VOLUME e CW1 ([facility]) 31.5 32.0-36.5 MEAN CORPUSCULAR HGB CONC eCW1 ([facility]) 234 150-450 PLATELET COUNT, AUTOMATED eCW1 ([facility]) 13.7 11.5-14.5 RED CELL DISTRIBUTION WID TH eCW1 ([facility]) 27.6 27.0-33.0 MEAN CORPUSCULAR HEMOGLOB IN eCW1 ([facility]) Procedure Social History Code Duration Value Status Description Data Source(s ) Smoking 08/09/2021 12:00:00 AM EDT Current Smoker completed Curre nt Smoker eCW1 ([facility]) Smoking 08/09/2021 12:00:00 AM EDT Current Smoker completed Curre nt Smoker eCW1 ([facility]) Vital Signs ID Date Data Source UNK Name Value Range Interpretation Code Description Data Source(s) Body weight 196.8 [lb_av] 196.8 [lb_av] eCW1 ([facility]) Body weight 89.27 kg 89.27 kg eCW1 ([facility]) Body height 63 [in_i] 63 [in_i] eCW1 ([facility]) Systolic blood pressure 118 mm[Hg] 118 mm[Hg] e CW1 ([facility]) Diastolic blood pressure 60 mm[Hg] 60 mm[Hg] eCW1 ([facility]) Respiratory rate 18 /min 18 /min eCW1 ([facility]) Body temperature 94.9 [degF] 94.9 [degF] eCW1 ( [facility]) Body mass index (BMI) [Ratio] 34.86 kg/m2 34.86 kg/m2 eCW1 ([facility]) Heart rate 114 /min 114 /min eCW1 ([facility]) Patient Treatment Plan of Care Planned Activity Planned Date Details Description Data Source (s) Omeprazole 20 MG Delayed Release Oral Capsule 08/09/2021 12:00:00 A M EDT eCW1 ([facility]) Albuterol Sulfate HFA 108 (90 Base) MCG/ACT 08/09/2021 12:00:00 AM EDT eCW1 ([facility]) Omeprazole 20 MG Delayed Release Oral Capsule 08/09/2021 12:00:00 A M EDT eCW1 ([facility]) Albuterol Sulfate HFA 108 (90 Base) MCG/ACT 08/09/2021 12:00:00 AM EDT eCW1 ([facility])
[2021-10-07] MEDS ORDERED: NAPR-837 PO (20:38)
[2021-10-07 20:48] VITALS: BP 142/78
--- NOTE | 2021-10-08 06:25 | ED PDOC ---
Post-Departure Follow-Up cta chest faxed to [facility] Ana Lawson MD Oct 08, 2021 06:25
== END 2021-10-07 20:54 | disposition home or self-care (01) ==
LOC: M ED 12:41
DX: R07.89 Other chest pain (principal); K21.9 Gastro-esophageal reflux disease without esophagitis; F17.200 Nicotine dependence, unspecified, uncomplicated; R91.1 Solitary pulmonary nodule
CPT/HCPCS: 71275; 80048; 82550; 82553; 84484; 85025; 93005; 99284; Q9967

== ENCOUNTER → 2021-10-08 | Outpatient (REF) | payer BC ==
[~2021-10-08] MED LIST: ALBU8.5H; ATOR80TA59; CLAR10CA3 PO; FLUO20CA22; NAPR-837 PO; OMEP-173
== END ==
LOC: M SFHCADAM 17:44
PROVIDERS: ATTEND Physician Assistant
DX: Z12.4 Encounter for screening for malignant neoplasm of cervix (principal)
CPT/HCPCS: 87624; G0123

== ENCOUNTER → 2022-12-07 | Outpatient (REF) | payer BC | LOC: M LAB REF 17:54 | PROVIDERS: ATTEND Physician Assistant Medical | DX: J02.9 Acute pharyngitis, unspecified (principal) ==

== ENCOUNTER → 2023-02-10 | Outpatient (CLI) | payer BC ==
[2023-02-10 13:53] LABS: BASO # 0.1 10^3/uL (0.0-0.2); BASO % 0.6 % (0.0-1.0); EOS # 0.1 10^3/uL (0.0-0.5); EOS % 1.4 % (0.0-3.0); HEMATOCRIT 44.9 % (36.0-47.0); HEMOGLOBIN 14.2 g/dl (12.0-15.5); LYMPH # 3.1 10^3/uL (1.5-5.0); LYMPH % 31.2 % (24.0-44.0); MEAN CORPUSCULAR HEMOGLOBIN 27.7 pg (27.0-33.0); MEAN CORPUSCULAR HGB CONC 31.6 g/dl (32.0-36.5); MEAN CORPUSCULAR VOLUME 87.5 fl (80.0-96.0); MONO # 0.6 10^3/uL (0.0-0.8); MONO % 6.3 % (2.0-8.0); NEUTROPHILS # 5.9 10^3/uL (1.5-8.5); PLATELET COUNT, AUTOMATED 237 10^3/uL (150-450); RED BLOOD COUNT 5.13 10^6/uL (4.00-5.40); WHITE BLOOD COUNT 9.8 10^3/uL (4.0-10.0)
[2023-02-10 14:16] LABS: HEMOGLOBIN A1c 5.1 % (4.0-6.0)
[2023-02-10 14:28] LABS: ALBUMIN 4.1 G/DL (3.2-5.2); ALKALINE PHOSPHATASE 146 U/L (46-116); ALT/SGPT 29 U/L (7.0-40); AST/SGOT 28 U/L (<34); BILIRUBIN,TOTAL 0.5 MG/DL (0.3-1.2); BLOOD UREA NITROGEN 13 MG/DL (9-23); CALCIUM LEVEL 9.5 MG/DL (8.5-10.1); CARBON DIOXIDE LEVEL 27 MMOL/L (20-31); CHLORIDE LEVEL 101 MMOL/L (98-107); CHOLESTEROL LEVEL 183 MG/DL (<200); CHOLESTEROL RISK RATIO 5.31 (<5); CREATININE FOR GFR 0.64 MG/DL (0.55-1.30); FOLATE > 24.0 NG/ML (>5.4); FREE T4 1.21 NG/DL (0.89-1.76); GLOMERULAR FILTRATION RATE > 60.0 (>51); GLUCOSE, FASTING 81 MG/DL (60-100); HDL CHOLESTEROL 34.4 MG/DL (>40); LDL CHOLESTEROL 75.4 MG/DL (<100); NON-HDL-C 148.6 MG/DL; POTASSIUM SERUM 4.5 MMOL/L (3.5-5.1); SODIUM LEVEL 137 MMOL/L (136-145); THYROID STIMULATING HORMONE 1.733 uIU/ML (0.55-4.78); TOTAL PROTEIN 7.5 G/DL (5.7-8.2); TRIGLYCERIDES LEVEL 366 MG/DL (<150); VITAMIN B12 LEVEL 1673 PG/ML (211-911)
== END ==
LOC: M WHC 09:09
PROVIDERS: ATTEND Physician Assistant
DX: F41.9 Anxiety disorder, unspecified (principal); F17.200 Nicotine dependence, unspecified, uncomplicated; E66.01 Morbid (severe) obesity due to excess calories; G47.33 Obstructive sleep apnea (adult) (pediatric); E78.2 Mixed hyperlipidemia; Z13.1 Encounter for screening for diabetes mellitus; Z80.0 Family history of malignant neoplasm of digestive organs

== ENCOUNTER → 2023-02-16 | Outpatient (CLI) | payer BC | LOC: M WHC 07:57 | PROVIDERS: ATTEND Physician Assistant | DX: Z12.31 Encounter for screening mammogram for malignant neoplasm of breast (principal); E28.319 Asymptomatic premature menopause; Z13.820 Encounter for screening for osteoporosis; M85.89 Other specified disorders of bone density and structure, multiple sites ==

== ENCOUNTER → 2023-04-01 | Outpatient (CLI) | payer BC | LOC: M RAD 10:25 | PROVIDERS: ATTEND Physician Assistant | DX: Z12.2 Encounter for screening for malignant neoplasm of respiratory organs (principal); F17.210 Nicotine dependence, cigarettes, uncomplicated ==

== ENCOUNTER 2023-12-13 15:10 | Inpatient (IN) | payer BC ==
[~2023-12-13] VITALS: Ht 160 cm; Wt 94.1 kg
[~2023-12-13 15:10] MED LIST changes: -ALBU8.5H; +ALBU8.5H INH; -ATOR80TA59; +ATOR80TA59 PO; -FLUO20CA22; +FLUO20CA22 PO; -OMEP-173; +OMEP-173 PO
[2023-12-13 15:36] LABS: BASO # 0.1 10^3/uL (0.0-0.2); BASO % 0.4 % (0.0-1.0); EOS # 0.1 10^3/uL (0.0-0.5); EOS % 0.4 % (0.0-3.0); HEMATOCRIT 42.3 % (36.0-47.0); LYMPH # 1.9 10^3/uL (1.5-5.0); LYMPH % 13.1 % (24.0-44.0); MEAN CORPUSCULAR HGB CONC 33.1 g/dl (32.0-36.5); MEAN CORPUSCULAR VOLUME 81.7 fl (80.0-96.0); MONO # 0.4 10^3/uL (0.0-0.8); MONO % 2.9 % (2.0-8.0); NEUTROPHILS # 11.8 10^3/uL (1.5-8.5); NEUTROPHILS % 82.9 % (36.0-66.0); PLATELET COUNT, AUTOMATED 222 10^3/uL (150-450); RED BLOOD COUNT 5.18 10^6/uL (4.00-5.40); WHITE BLOOD COUNT 14.3 10^3/uL (4.0-10.0)
[2023-12-13 15:52] LABS: INR 1.04; PROTHROMBIN TIME 13.3 SECONDS (12.5-14.5)
[2023-12-13 15:53] LABS: PARTIAL THROMBOPLASTIN TIME 28.4 SECONDS (24.8-34.2)
[2023-12-13 15:59] LABS: CK-MB VALUE MASS < 1.0 NG/ML (<3.6)
[2023-12-13 16:00] LABS: LIPASE 40 U/L (12-53)
[2023-12-13 16:01] LABS: CPK CREATINE PHOSPHOKINASE 66 U/L (34-145); MB/CK RELATIVE INDEX 1.51 (< OR =4)
[2023-12-13 16:02] LABS: ALKALINE PHOSPHATASE 143 U/L (46-116); ALT/SGPT 23 U/L (7.0-40); AST/SGOT 17 U/L (<34); BILIRUBIN,DIRECT 0.2 MG/DL (<0.4); BILIRUBIN,TOTAL 0.5 MG/DL (0.3-1.2); BLOOD UREA NITROGEN 11 MG/DL (9-23); CALCIUM LEVEL 9.6 MG/DL (8.5-10.1); CARBON DIOXIDE LEVEL 26 MMOL/L (20-31); CHLORIDE LEVEL 103 MMOL/L (98-107); CREATININE FOR GFR 0.61 MG/DL (0.55-1.30); GLOMERULAR FILTRATION RATE > 60.0 (>51); GLUCOSE, FASTING 131 MG/DL (60-100); POTASSIUM SERUM 3.8 MMOL/L (3.5-5.1); SODIUM LEVEL 135 MMOL/L (136-145); TOTAL PROTEIN 7.4 G/DL (5.7-8.2)
[2023-12-13] MEDS ORDERED: ISOVUE-370 76% 100ML VIAL As Ordered ONE (16:14)
[2023-12-13] MEDS ORDERED: NS 1,000 ML IV ONE (16:20)
[2023-12-13] MEDS: MORPHINE 2 MG/ML 1ML VIAL IV PRN ×2 (16:28→18:16)
[2023-12-13 17:37] LABS: CK-MB VALUE MASS < 1.0 NG/ML (<3.6)
[2023-12-13 17:39] LABS: CPK CREATINE PHOSPHOKINASE 55 U/L (34-145); MB/CK RELATIVE INDEX 1.81 (< OR =4)
[2023-12-13] MEDS ORDERED: PIPERACILLIN/TAZOBACTAM SOD 4.5 GM in D5W MINI-BAG PLUS 50 ML IV ONE (17:50)
[2023-12-13] MEDS ORDERED: ONDANSETRON 4MG 2ML VIAL IV ONE (17:50)
[2023-12-13] MEDS ORDERED: MORPHINE 2 MG/ML 1ML VIAL IV PRN ×2 (18:40→20:50)
[2023-12-13] MEDS ORDERED: VITA100093 PO (19:55)
[2023-12-13] MEDS ORDERED: B-12100010 PO (19:55)
[2023-12-13] MEDS ORDERED: HOME MED LIST COMPLETE! XX SCH (20:00)
[2023-12-13] MEDS ORDERED: ALBUTEROL 90 MCG/ACT 8GM HFA INHALER INH PRN (20:30)
[2023-12-13 22:15] VITALS: BP 180/98; TEMP 97.7; O2SAT 97
[2023-12-13 23:13] VITALS: BP 170/108
[2023-12-13] MEDS: ONDANSETRON 4MG 2ML VIAL IV PRN (23:56)
[2023-12-13] MEDS: HEPARIN SOD (PORCINE) 5000UNITS/ML 1ML VIAL/SYRINGE SC SCH (23:56)
[2023-12-13] MEDS: PIPERACILLIN/TAZOBACTAM SOD 3.375 GM in D5W MINI-BAG PLUS 50 ML IV SCH (23:56)
[2023-12-14] VITALS (13 sets, daily range): BP systolic 109–148; BP diastolic 67–90; TEMP 96.8–101.5; O2SAT 91–96
[2023-12-14] MEDS ORDERED: MORPHINE 2 MG/ML 1ML VIAL IV ONE
[2023-12-14] MEDS: HEPARIN SOD (PORCINE) 5000UNITS/ML 1ML VIAL/SYRINGE SC SCH ×3 (05:48→21:18)
[2023-12-14] MEDS: PIPERACILLIN/TAZOBACTAM SOD 3.375 GM in D5W MINI-BAG PLUS 50 ML IV SCH ×3 (05:48→17:40)
[2023-12-14] MEDS: MORPHINE 2 MG/ML 1ML VIAL IV PRN ×3 (05:49→16:07)
[2023-12-14] MEDS ORDERED: ACETAMINOPHEN TAB 650MG DOSE (2X325MG) PO ONE (06:05)
[2023-12-14 06:13] LABS: HEMATOCRIT 38.9 % (36.0-47.0); MEAN CORPUSCULAR HEMOGLOBIN 27.1 pg (27.0-33.0); MEAN CORPUSCULAR HGB CONC 33.4 g/dl (32.0-36.5); MEAN CORPUSCULAR VOLUME 81.2 fl (80.0-96.0); PLATELET COUNT, AUTOMATED 215 10^3/uL (150-450); RED BLOOD COUNT 4.79 10^6/uL (4.00-5.40); WHITE BLOOD COUNT 16.2 10^3/uL (4.0-10.0)
[2023-12-14 06:24] LABS: INR 1.02; PROTHROMBIN TIME 13.1 SECONDS (12.5-14.5)
[2023-12-14 06:46] LABS: ALBUMIN 3.5 G/DL (3.2-5.2); ALKALINE PHOSPHATASE 126 U/L (46-116); ALT/SGPT 17 U/L (7.0-40); AST/SGOT 14 U/L (<34); BILIRUBIN,TOTAL 0.8 MG/DL (0.3-1.2); BLOOD UREA NITROGEN 8 MG/DL (9-23); CALCIUM LEVEL 9.1 MG/DL (8.5-10.1); CARBON DIOXIDE LEVEL 26 MMOL/L (20-31); CHLORIDE LEVEL 98 MMOL/L (98-107); CREATININE FOR GFR 0.59 MG/DL (0.55-1.30); GLOMERULAR FILTRATION RATE > 60.0 (>51); GLUCOSE, FASTING 111 MG/DL (60-100); POTASSIUM SERUM 3.7 MMOL/L (3.5-5.1); SODIUM LEVEL 132 MMOL/L (136-145); TOTAL PROTEIN 7.1 G/DL (5.7-8.2)
[2023-12-14] MEDS: ATORVASTATIN 20 MG TAB PO SCH (09:00)
[2023-12-14] MEDS ORDERED: LORATADINE 10 MG TAB PO SCH (09:00)
[2023-12-14] MEDS: OMEPRAZOLE 20MG CAP PO SCH (09:00)
[2023-12-14] MEDS ORDERED: FLUoxetine 20MG CAP PO SCH (09:00)
[2023-12-14] MEDS: VITAMIN D 1,000 INTERNATIONAL UNITS TABLET PO SCH (09:00)
[2023-12-14] MEDS: CYANOCOBALAMIN 500 MCG TAB PO SCH (09:00)
[2023-12-14] MEDS: ACETAMINOPHEN TAB 650MG DOSE (2X325MG) PO PRN ×2 (16:00→21:18)
[2023-12-14] MEDS: ONDANSETRON 4MG 2ML VIAL IV PRN (16:10)
[2023-12-14] MEDS: LR 1,000 ML IV SCH ×2 (16:12→20:47)
[2023-12-14] MEDS ORDERED: LIDOCAINE 2% 100MG/5ML SDV (FOR ANES.) As Ordered ONE (17:16)
[2023-12-14] MEDS ORDERED: fentaNYL 100 MCG/2 ML INJECTION As Ordered ONE ×2 (17:16→18:29)
[2023-12-14] MEDS ORDERED: ONDANSETRON 4MG 2ML VIAL As Ordered ONE (17:16)
[2023-12-14] MEDS ORDERED: propofoL 200 MG/20 ML VIAL As Ordered ONE (17:16)
[2023-12-14] MEDS ORDERED: MIDAZOLAM INJ 2MG/2ML VIAL As Ordered ONE (17:16)
[2023-12-14] MEDS ORDERED: ROCURONIUM BROMIDE 50MG/5ML VIAL As Ordered ONE (17:16)
[2023-12-14] MEDS ORDERED: INDOCYANINE GREEN 25MG VIAL (IC-GREEN) As Ordered ONE (17:19)
[2023-12-14] MEDS ORDERED: ETOMIDATE INJ 20MG/10ML VIAL As Ordered ONE (18:44)
[2023-12-14] MEDS ORDERED: LABETALOL 100MG/20ML VIAL As Ordered ONE (18:57)
[2023-12-14] MEDS ORDERED: ACETAMINOPHEN 1000MG 100ML IV BAG As Ordered ONE (19:04)
[2023-12-14] MEDS ORDERED: SUGAMMADEX SODIUM 500 MG/5 ML VIAL (BRIDION) As Ordered ONE (19:27)
[2023-12-14] MEDS ORDERED: KETOROLAC 60MG 2ML VIAL As Ordered ONE (19:27)
[2023-12-14] MEDS ORDERED: LR 1,000 ML IV SCH (19:45)
[2023-12-14] MEDS ORDERED: HYDROMORPHONE HCL 0.5 MG/ 0.5 ML SYRINGE IV PRN (19:45)
[2023-12-14] MEDS ORDERED: oxyCODONE 5MG TAB PO PRN (19:45)
[2023-12-14] MEDS ORDERED: fentaNYL 100 MCG/2 ML INJECTION IV PRN (19:45)
[2023-12-14] MEDS ORDERED: ONDANSETRON 4MG 2ML VIAL IV PRN (19:45)
[2023-12-15] VITALS (16 sets, daily range): BP systolic 111–133; BP diastolic 69–75; TEMP 97–98.2; O2SAT 83–99
[2023-12-15] MEDS: PIPERACILLIN/TAZOBACTAM SOD 3.375 GM in D5W MINI-BAG PLUS 50 ML IV SCH ×2 (00:18→05:47)
[2023-12-15] MEDS: LR 1,000 ML IV SCH (03:49)
[2023-12-15] MEDS: ACETAMINOPHEN TAB 650MG DOSE (2X325MG) PO PRN (05:47)
[2023-12-15] MEDS: HEPARIN SOD (PORCINE) 5000UNITS/ML 1ML VIAL/SYRINGE SC SCH (05:48)
[2023-12-15 06:28] LABS: BASO % 0.1 % (0.0-1.0); EOS % 0.1 % (0.0-3.0); HEMATOCRIT 34.5 % (36.0-47.0); HEMOGLOBIN 11.5 g/dl (12.0-15.5); LYMPH # 1.2 10^3/uL (1.5-5.0); LYMPH % 7.1 % (24.0-44.0); MEAN CORPUSCULAR HEMOGLOBIN 27.6 pg (27.0-33.0); MEAN CORPUSCULAR HGB CONC 33.3 g/dl (32.0-36.5); MEAN CORPUSCULAR VOLUME 82.7 fl (80.0-96.0); MONO # 0.8 10^3/uL (0.0-0.8); MONO % 4.9 % (2.0-8.0); NEUTROPHILS # 14.7 10^3/uL (1.5-8.5); NEUTROPHILS % 87.1 % (36.0-66.0); PLATELET COUNT, AUTOMATED 160 10^3/uL (150-450); RED BLOOD COUNT 4.17 10^6/uL (4.00-5.40); WHITE BLOOD COUNT 16.8 10^3/uL (4.0-10.0)
[2023-12-15 07:03] LABS: ALBUMIN 2.9 G/DL (3.2-5.2); ALKALINE PHOSPHATASE 100 U/L (46-116); ALT/SGPT 41 U/L (7.0-40); AST/SGOT 50 U/L (<34); BILIRUBIN,TOTAL 0.9 MG/DL (0.3-1.2); BLOOD UREA NITROGEN 13 MG/DL (9-23); CALCIUM LEVEL 8.6 MG/DL (8.5-10.1); CARBON DIOXIDE LEVEL 29 MMOL/L (20-31); CHLORIDE LEVEL 103 MMOL/L (98-107); CREATININE FOR GFR 0.74 MG/DL (0.55-1.30); GLOMERULAR FILTRATION RATE > 60.0 (>51); GLUCOSE, FASTING 111 MG/DL (60-100); POTASSIUM SERUM 4.5 MMOL/L (3.5-5.1); SODIUM LEVEL 137 MMOL/L (136-145)
[2023-12-15] MEDS: VITAMIN D 1,000 INTERNATIONAL UNITS TABLET PO SCH (08:26)
[2023-12-15] MEDS: ATORVASTATIN 20 MG TAB PO SCH (08:26)
[2023-12-15] MEDS: CYANOCOBALAMIN 500 MCG TAB PO SCH (08:26)
[2023-12-15] MEDS: OMEPRAZOLE 20MG CAP PO SCH (08:26)
[2023-12-15] MEDS ORDERED: METR-265 PO (10:53)
[2023-12-15] MEDS ORDERED: CIPR-249 PO (10:53)
[2023-12-15] MEDS ORDERED: OXYC1TAB23 PO ×2 (10:53→11:04)
== END 2023-12-15 11:50 | disposition home or self-care (01) | DRG 263 ==
LOC: EDBD 15:10 → M ED 15:10 → M ED INP 20:24 → M MSPAV 20:24 → ENRESERV 20:53 → M MSPAV 22:14
PROVIDERS: ADMIT Internal Medicine; ATTEND Internal Medicine
PROC: 8E0W4CZ Robotic Assisted Procedure of Trunk Region, Percutaneous Endoscopic Approach (ICD-10-PCS; 2023-12-14)
PROC: 0FT44ZZ Resection of Gallbladder, Percutaneous Endoscopic Approach (ICD-10-PCS; principal; 2023-12-14 17:30)
DX: K81.0 Acute cholecystitis (principal); E78.2 Mixed hyperlipidemia; F17.200 Nicotine dependence, unspecified, uncomplicated; F41.9 Anxiety disorder, unspecified; M81.0 Age-related osteoporosis without current pathological fracture; K21.9 Gastro-esophageal reflux disease without esophagitis; N83.202 Unspecified ovarian cyst, left side; Z79.899 Other long term (current) drug therapy

== ENCOUNTER → 2023-12-22 | Outpatient (REF) | payer BC ==
[~2023-12-22] MED LIST changes: +B-12100010 PO; +CIPR-249 PO; +METR-265 PO; +OXYC1TAB23 PO; +VITA100093 PO
[2023-12-22 15:22] LABS: HEMATOCRIT 39.5 % (36.0-47.0); HEMOGLOBIN 12.3 g/dl (12.0-15.5); MEAN CORPUSCULAR HEMOGLOBIN 26.7 pg (27.0-33.0); MEAN CORPUSCULAR HGB CONC 31.1 g/dl (32.0-36.5); MEAN CORPUSCULAR VOLUME 85.9 fl (80.0-96.0); PLATELET COUNT, AUTOMATED 337 10^3/uL (150-450); WHITE BLOOD COUNT 10.4 10^3/uL (4.0-10.0)
[2023-12-22 16:03] LABS: CREATININE, URINE 127.2 MG/DL; MAU/CREAT RATIO 7.8 MCG/MG (0.0-30.0)
[2023-12-22 16:08] LABS: ALBUMIN 3.4 G/DL (3.2-5.2); ALKALINE PHOSPHATASE 242 U/L (46-116); ALT/SGPT 110 U/L (7.0-40); AST/SGOT 48 U/L (<34); BILIRUBIN,TOTAL 0.5 MG/DL (0.3-1.2); BLOOD UREA NITROGEN 13 MG/DL (9-23); CALCIUM LEVEL 9.6 MG/DL (8.5-10.1); CARBON DIOXIDE LEVEL 29 MMOL/L (20-31); CHLORIDE LEVEL 105 MMOL/L (98-107); CHOLESTEROL LEVEL 195 MG/DL (<200); CHOLESTEROL RISK RATIO 7.95 (<5); CREATININE FOR GFR 0.68 MG/DL (0.55-1.30); GLOMERULAR FILTRATION RATE > 60.0 (>51); GLUCOSE, FASTING 85 MG/DL (60-100); HDL CHOLESTEROL 24.5 MG/DL (>40); LDL CHOLESTEROL 136.5 MG/DL (<100); NON-HDL-C 170.5 MG/DL; SODIUM LEVEL 142 MMOL/L (136-145); TOTAL PROTEIN 7.2 G/DL (5.7-8.2); TRIGLYCERIDES LEVEL 170 MG/DL (<150)
== END ==
LOC: M SFHCADAM 10:20
PROVIDERS: ATTEND Physician Assistant
DX: E78.2 Mixed hyperlipidemia (principal); F17.210 Nicotine dependence, cigarettes, uncomplicated; E66.01 Morbid (severe) obesity due to excess calories; K21.9 Gastro-esophageal reflux disease without esophagitis; Z80.0 Family history of malignant neoplasm of digestive organs; H00.012 Hordeolum externum right lower eyelid; F41.9 Anxiety disorder, unspecified

== ENCOUNTER → 2024-09-20 | Outpatient (CLI) | payer BC ==
[~2024-09-20] MED LIST changes: +FLUO-365 PO; -FLUO20CA22 PO
== END ==
LOC: M WHC 10:41
PROVIDERS: ATTEND Specialist
DX: N83.202 Unspecified ovarian cyst, left side (principal)

== ENCOUNTER → 2024-10-21 | Outpatient (CLI) | payer BC | LOC: M WHC 09:37 | PROVIDERS: ATTEND Physician Assistant | DX: Z12.31 Encounter for screening mammogram for malignant neoplasm of breast (principal) ==

== ENCOUNTER → 2025-07-07 | Outpatient (CLI) | payer BC | LOC: M PLAIMG 10:50 | PROVIDERS: ATTEND Family Medicine | DX: Z53.9 Procedure and treatment not carried out, unspecified reason (principal) ==

== ENCOUNTER → 2025-07-07 | Outpatient (CLI) | payer BC | LOC: M WHC 10:48 | PROVIDERS: ATTEND Physician Assistant | DX: Z12.31 Encounter for screening mammogram for malignant neoplasm of breast (principal); Z13.820 Encounter for screening for osteoporosis; M85.89 Other specified disorders of bone density and structure, multiple sites; R92.313 Mammographic fatty tissue density, bilateral breasts ==

== ENCOUNTER → 2025-08-16 | Outpatient (CLI) | payer BC ==
[~2025-08-16] MED LIST changes: +ISOVUE-370 76% 100 ML VIAL ONE
== END ==
LOC: M PLAIMG 08:29
PROVIDERS: ATTEND Physician Assistant
DX: R10.812 Left upper quadrant abdominal tenderness (principal); M47.815 Spondylosis without myelopathy or radiculopathy, thoracolumbar region; K42.9 Umbilical hernia without obstruction or gangrene; I70.0 Atherosclerosis of aorta; R93.3 Abnormal findings on diagnostic imaging of other parts of digestive tract
CPT/HCPCS: 74177; Q9967

== ENCOUNTER → 2025-09-04 | Outpatient (CLI) | payer BC ==
[~2025-09-04] MED LIST changes: -ISOVUE-370 76% 100 ML VIAL ONE
== END ==
LOC: M WUC 11:33
PROVIDERS: ATTEND Physician Assistant
DX: M25.542 Pain in joints of left hand (principal)

== ENCOUNTER 2025-10-26 09:10 | Day surgery (SDC) | payer BC ==
[~2025-10-26] VITALS: Ht 154.9 cm; Wt 94.8 kg
[~2025-10-26 09:10] MED LIST changes: +FAMO40TA3 PO; +OMEP40CA5 PO
[2025-10-26] MEDS ORDERED: LIDOCAINE 2% 100 MG/5 ML SDV (FOR ANES.) As Ordered ONE (10:03)
[2025-10-26] MEDS ORDERED: GLYCOPYRROLATE INJ 0.2 MG/ML 2 ML VIAL As Ordered ONE (10:03)
[2025-10-26 10:28] VITALS: TEMP 97.6
[2025-10-26 10:50] VITALS: BP 148/76; O2SAT 98
== END 2025-10-26 11:01 | disposition home or self-care (01) ==
LOC: M OPP 09:10
PROVIDERS: ATTEND Surgery
DX: D12.6 Benign neoplasm of colon, unspecified (principal); K57.30 Diverticulosis of large intestine without perforation or abscess without bleeding; K64.2 Third degree hemorrhoids; K62.5 Hemorrhage of anus and rectum; K44.9 Diaphragmatic hernia without obstruction or gangrene; K31.89 Other diseases of stomach and duodenum; Z79.899 Other long term (current) drug therapy; F17.210 Nicotine dependence, cigarettes, uncomplicated
CPT/HCPCS: 43239; 45385; 88305; J1596